=== PATIENT | male | born 1940 | race Caucasian/White ===

== ENCOUNTER → 2016-08-17 | Outpatient (CLI) | payer MEDICARE ==
[~2016-08-17] MED LIST: REGADENOSON 0.4 MG/5 ML DISP.SYRIN. IV ONE
== END | disposition home or self-care (01) ==
LOC: PCVCIMAG 09:33
PROVIDERS: ATTEND Internal Medicine Cardiovascular Disease
DX: I65.23 Occlusion and stenosis of bilateral carotid arteries (principal); I25.10 Atherosclerotic heart disease of native coronary artery without angina pectoris; R06.00 Dyspnea, unspecified; R01.1 Cardiac murmur, unspecified; Z82.49 Family history of ischemic heart disease and other diseases of the circulatory system
CPT/HCPCS: 78452; 93017; 93306; 93880; A9500; J2785

== ENCOUNTER → 2016-08-23 | Outpatient (CLI) | payer MEDICARE ==
[~2016-08-23] MED LIST changes: +DIAZEPAM 10 MG TABLET ONE; +FENTANYL PF 100 MCG/2 ML VIAL. ONE; +IOHEXOL 350 MG/ML 100ML VIAL. ONE; +IV NORMAL SALINE 1000ML BAG 1,000 ML ONE; +LIDOCAINE 1% Multi-Dose 20 ML VIAL. ONE; +MIDAZOLAM HCL 2 MG/2 ML VIAL. ONE; -REGADENOSON 0.4 MG/5 ML DISP.SYRIN. IV ONE
== END | disposition home or self-care (01) ==
LOC: PCVCINTER 09:50
PROVIDERS: ATTEND Internal Medicine Cardiovascular Disease
DX: I25.10 Atherosclerotic heart disease of native coronary artery without angina pectoris (principal); I34.0 Nonrheumatic mitral (valve) insufficiency; I35.0 Nonrheumatic aortic (valve) stenosis; E78.5 Hyperlipidemia, unspecified; I45.10 Unspecified right bundle-branch block; R06.02 Shortness of breath; R01.1 Cardiac murmur, unspecified; E11.9 Type 2 diabetes mellitus without complications; I10 Essential (primary) hypertension; J45.909 Unspecified asthma, uncomplicated; Z82.49 Family history of ischemic heart disease and other diseases of the circulatory system
CPT/HCPCS: 75625; 93460; C1751; C1760; C1769; C1894; J2250; J3010; J7030; Q9967

== ENCOUNTER → 2017-02-28 | Outpatient (CLI) | payer MEDICARE ==
--- NOTE | 2017-02-28 17:07 | PCVCIMAG ---
APPROVED REPORT Study performed: 02/28/2017 15:20:01 EXAM: Comprehensive 2D, Doppler, and color-flow Echocardiogram Patient Location: Echo lab Other Information Study Quality: Good Risk Factors: Cardiac Risk Factors: DM, SOB Indications Murmur CAD 2D Dimensions LVEF(%): 61.63 (>50%) IVSd: 11.13 (7-11mm)LVOT Diam: 21.00 (18-24mm) LVDd: 46.96 mm PWd: 9.10 (7-11mm)Ascending Ao: 27.55 (22-36mm) LVDs: 31.43 (25-40mm) Aortic Root: 27.94 mm LV Single Plane 4CH: 56.25 % LV Single Plane 2CH: 52.96 %Lew's LVEF: 54.60 % Biplane EF: 55.3 % Volumes Left Atrial Volume (Systole) Single Plane 4CH: 67.53 mLSingle Plane 2CH: 67.41 mL LA ESV Index: 38.00 mL/m2 Aortic Valve AoV Peak Aristides.: 2.18 m/s AO Peak Gr.: 19.09 mmHgLVOT Max P.80 mmHg AO Mean Gr.: 9.97 mmHg AO V2 Mean: 1.51 m/sLVOT Max V: 0.96 m/s AO V2 VTI: 58.29 cm GONZALO Vmax: 1.60 cm2 AI Vmax: 2.90 m/s AI Upshur: 1.52 m/s2 AI PHT: 553.91 ms Mitral Valve E/A Ratio: 1.2 MV Decel. Time: 199.41 ms MV E Max Aristides.: 1.06 m/s MV A Aristides.: 0.85 m/s IVRT: 86.51 ms TDI E/Lateral E': 13.25E/Medial E': 17.67 Medial E' Aristides.: 0.06 m/s Lateral E' Aristides.: 0.08 m/s Pulmonary Valve PV Peak Aristides.: 0.99 m/sPV Peak Gr.: 3.94 mmHg VA End Vmax: 1.15 m/s Pulmonary Vein P Vein S: 0.95 m/sP Vein A: 0.24 m/s P Vein D: 0.65 m/sP Vein A Dur.: 100.3 msec P Vein S/D Ratio: 1.46 Tricuspid Valve TR Peak Aristides.: 3.00 m/s TR Peak Gr.: 36.04 mmHg PA Pressure: 42.00 mmHg Left Ventricle The left ventricle is normal size. There is normal LV segmental wall motion. There is normal left ventricular wall thickness. Left ventricular systolic function is normal. The left ventricular ejection fraction is within the normal range. LVEF is 55-60%. The left ventricular diastolic function is normal. Right Ventricle The right ventricle is normal size. The right ventricular systolic function is normal. Atria Left atrium is mildly dilated. The right atrium size is normal. Aortic Valve The Aortic valve is sclerotic. Trace to mild aortic regurgitation. Mild aortic stenosis.1.6cm Mitral Valve The mitral valve is normal in structure. Trace mitral regurgitation. No evidence of mitral valve stenosis. Tricuspid Valve The tricuspid valve is normal in structure. Trace tricuspid regurgitation. Pulmonary Artery pressure is 42 mmHg. Pulmonic Valve The pulmonary valve is normal in structure. Mild pulmonic regurgitation. Great Vessels The aortic root is normal in size. IVC is normal in size and collapses with >50% inspiration Pericardium There is no pericardial effusion. <Conclusion> The left ventricle is normal size. There is normal left ventricular wall thickness. LVEF is 55-60%. The left ventricular diastolic function is normal. Left atrium is mildly dilated. Mild aortic stenosis. The Aortic valve is sclerotic. Mild aortic stenosis.1.6cm Trace mitral regurgitation. There is no pericardial effusion. Trace tricuspid regurgitation. Pulmonary Artery pressure is 42 mmHg.
== END | disposition home or self-care (01) ==
LOC: PCVCIMAG 13:58
PROVIDERS: ATTEND Internal Medicine Cardiovascular Disease
DX: I25.10 Atherosclerotic heart disease of native coronary artery without angina pectoris (principal); I08.3 Combined rheumatic disorders of mitral, aortic and tricuspid valves; I10 Essential (primary) hypertension; E78.00 Pure hypercholesterolemia, unspecified; I77.89 Other specified disorders of arteries and arterioles; J45.909 Unspecified asthma, uncomplicated; E11.9 Type 2 diabetes mellitus without complications; E03.9 Hypothyroidism, unspecified; I45.10 Unspecified right bundle-branch block; G62.9 Polyneuropathy, unspecified; Z82.49 Family history of ischemic heart disease and other diseases of the circulatory system; Z90.49 Acquired absence of other specified parts of digestive tract; Z79.84 Long term (current) use of oral hypoglycemic drugs; Z79.899 Other long term (current) drug therapy; Z87.891 Personal history of nicotine dependence; Z88.0 Allergy status to penicillin; Z88.1 Allergy status to other antibiotic agents; Z88.6 Allergy status to analgesic agent
CPT/HCPCS: 80061; 93005; 93306; G0463

== ENCOUNTER → 2018-04-06 | Outpatient (CLI) | payer MEDICARE ==
--- NOTE | 2018-04-06 14:42 | PCVCIMAG ---
EXAM: BILATERAL CAROTID DUPLEX INDICATION: Carotid Occlusive Disease. FINDINGS: Doppler Measurements (centimeters per second): RIGHT: Peak CCA-79, Peak ECA-121, Diastolic ICA-39, Peak ICA-159, ICA/CCA Ratio-2.0. LEFT: Peak CCA-103, Peak ECA-111, Diastolic ICA-28, Peak ICA-164, ICA/CCA Ratio-1.6. RIGHT CAROTID: The carotid bulb has minimal plaque. The proximal internal carotid artery shows 50-60% stenosis. The common carotid artery shows no significant stenosis. The external carotid artery shows no significant stenosis. LEFT CAROTID: The carotid bulb has minimal plaque. The proximal internal carotid artery shows 50-60% stenosis. The common carotid artery shows no significant stenosis. The external carotid artery shows no significant stenosis. Antegrade flow in both vertebral arteries. IMPRESSION: 50-60% stenosis of the right internal carotid artery with minimal plaque. 50-60% stenosis of the left internal carotid artery with minimal plaque. LOC:OFFICE
--- NOTE | 2018-04-06 15:44 | PCVCIMAG ---
APPROVED REPORT Study performed: 04/06/2018 14:14:45 EXAM: Comprehensive 2D, Doppler, and color-flow Echocardiogram Patient Location: Echo lab Status: routine BSA: 1.77 HR: 86 bpmBP: 128/62 mmHg Rhythm: NSR Other Information Study Quality: Good Indications Diabetes Dyspnea CAD mild aortic stenosis 2D Dimensions LVEF(%): 54.99 (>50%) IVSd: 11.00 (7-11mm)LVOT Diam: 22.39 (18-24mm) LVDd: 42.63 mm PWd: 11.00 (7-11mm) LVDs: 30.57 (25-40mm) Left Atrium: 40.73 (27-40mm) Aortic Root: 26.50 mm LV Single Plane 4CH: 59.86 % LV Single Plane 2CH: 54.62 %Lew's LVEF: 57.24 % Biplane EF: 58.4 % Volumes Left Atrial Volume (Systole) Single Plane 4CH: 80.01 mLSingle Plane 2CH: 60.42 mL LA ESV Index: 40.00 mL/m2 Aortic Valve AoV Peak Aristides.: 2.50 m/s AO Peak Gr.: 24.98 mmHgLVOT Max P.87 mmHg AO Mean Gr.: 12.36 mmHgLVOT Mean P.24 mmHg AO V2 Mean: 1.64 m/sLVOT Max V: 1.10 m/s AO V2 VTI: 52.19 cmLVOT Mean V: 0.68 m/s GONZALO (VTI): 1.89 [id number] V1 VTI: 25.10 cm GONZALO Vmax: 1.74 cm2 SV (LVOT): 98.76 mL Mitral Valve E/A Ratio: 0.6 MV Decel. Time: 292.98 ms MV E Max Aristides.: 0.77 m/s MV A Aristides.: 1.19 m/s IVRT: 107.27 ms Pulmonary Valve PV Peak Aristides.: 1.00 m/sPV Peak Gr.: 3.99 mmHg Pulmonary Vein P Vein S: 0.37 m/sP Vein A: 0.35 m/s P Vein D: 0.54 m/sP Vein A Dur.: 128.0 msec P Vein S/D Ratio: 0.69 Tricuspid Valve TR Peak Aristides.: 2.63 m/s TR Peak Gr.: 27.76 mmHg Left Ventricle The left ventricle is normal size. There is normal LV segmental wall motion. There is normal left ventricular wall thickness. Left ventricular systolic function is normal. The left ventricular ejection fraction is within the normal range. LVEF is 60%. The left ventricular diastolic function is normal. Right Ventricle The right ventricle is normal size. The right ventricular systolic function is normal. Atria The left atrium size is normal. The right atrium size is normal. Aortic Valve The aortic valve is moderately sclerotic. No aortic regurgitation is present. There is mild valvular aortic stenosis. Calculated aortic valve area is 1.7 cm2 with maximum pressure gradient of 25 mmHg and mean pressure gradient of 12 mmHg. Mitral Valve The mitral valve is normal in structure. Trace mitral regurgitation. No evidence of mitral valve stenosis. Tricuspid Valve The tricuspid valve is normal in structure. Mild tricuspid regurgitation with PAP of 35 mmHg. Pulmonic Valve The pulmonary valve is normal in structure. There is no pulmonic valvular regurgitation. Great Vessels The aortic root is normal in size. IVC is normal in size and collapses with >50% inspiration Pericardium There is no pericardial effusion. There is no pleural effusion. <Conclusion> The left ventricle is normal size. LVEF is 60%. The left ventricular diastolic function is normal. The right ventricle is normal size. The left atrium size is normal. The aortic valve is moderately sclerotic. There is mild valvular aortic stenosis. Calculated aortic valve area is 1.7 cm2 with maximum pressure gradient of 25 mmHg and mean pressure gradient of 12 mmHg. Trace mitral regurgitation. Mild tricuspid regurgitation with PAP of 35 mmHg. The aortic root is normal in size. There is no pericardial effusion.
== END | disposition home or self-care (01) ==
LOC: PCVCIMAG 14:43
PROVIDERS: ATTEND Internal Medicine Cardiovascular Disease
DX: I35.0 Nonrheumatic aortic (valve) stenosis (principal); R09.89 Other specified symptoms and signs involving the circulatory and respiratory systems; I65.23 Occlusion and stenosis of bilateral carotid arteries; I25.10 Atherosclerotic heart disease of native coronary artery without angina pectoris; I10 Essential (primary) hypertension; E11.9 Type 2 diabetes mellitus without complications; E78.00 Pure hypercholesterolemia, unspecified; I77.9 Disorder of arteries and arterioles, unspecified; Z79.4 Long term (current) use of insulin; Z79.84 Long term (current) use of oral hypoglycemic drugs; Z87.891 Personal history of nicotine dependence
CPT/HCPCS: 93005; 93306; 93880; G0463